=== PATIENT | male | born 1975 | race Caucasian/White ===

== ENCOUNTER 2016-07-08 19:59 | Emergency (ER) | payer MEDICAID ==
[2016-07-08 21:58] LABS: APPEARANCE CLEAR (CLEAR); BILIRUBIN NEGATIVE (NEGATIVE); COLOR YELLOW (YELLOW); GLUCOSE NEGATIVE (NEGATIVE); KETONE SMALL mg/dL (NEGATIVE); LEUKOCYTE ESTERASE TRACE (NEGATIVE); NITRITE NEGATIVE (NEGATIVE); PROTEIN TRACE mg/dL (NEGATIVE); UROBILINOGEN NORMAL (NORMAL)
[2016-07-08 21:59] LABS: BACTERIA FEW /hpf (NONE SEEN); EPITHELIAL CELLS 0-5 /hpf (0-5); MUCUS >1+ /lpf (NONE SEEN); RED CELLS - URINE 0-5 /hpf (0-5)
[2016-07-08 22:39] LABS: BASOPHILS 0.6 % (0.0-2.0); EOSINOPHILS 6.5 % (0-7); HEMATOCRIT 49.3 % (42.0-54.0); HEMOGLOBIN 17.2 g/dL (13.5-17.5); IMMATURE GRANULOCYTES 0.2 % (0-5); LYMPHOCYTES 25.4 % (15-50); MCH 33.1 pg (26.0-34.0); MCHC 34.9 g/dL (31.0-37.0); MEAN PLATELET VOLUME 11.6 fL (7.4-10.4); MONOCYTES 7.6 % (2-11); NEUTROPHILS 59.7 % (40-80); PLATELET COUNT 217 10x3/uL (130-400); RBC 5.19 10x6/uL (4.20-6.10); RDW 12.2 % (11.5-14.5); WBC 10.8 10x3/uL (4.8-10.8)
[2016-07-08 22:56] LABS: ALBUMIN 4.5 g/dL (3.4-5.0); ANION GAP 15.7 mmol/L (8-16); BILIRUBIN - TOTAL 0.72 mg/dL (0.2-1.3); CALCIUM 9.6 mg/dL (8.5-10.1); CARBON DIOXIDE 28.2 mmol/L (21.0-32.0); CREATININE - SERUM 1.2 mg/dL (0.6-1.3); POTASSIUM - SERUM 3.9 mmol/L (3.5-5.1); PROTEIN - SERUM 8.5 g/dL (6.4-8.2)
== END 2016-07-09 01:15 | disposition home or self-care (01) ==
LOC: D.ER 19:59
PROVIDERS: Emergency Medicine
DX: K85.90 Acute pancreatitis without necrosis or infection, unspecified (principal); N39.0 Urinary tract infection, site not specified; K22.70 Barrett's esophagus without dysplasia; F17.200 Nicotine dependence, unspecified, uncomplicated

== ENCOUNTER → 2017-01-14 14:19 | Outpatient (CLI) | payer MEDICAID | END | disposition home or self-care (01) | LOC: D.CT 14:19 | DX: R10.9 Unspecified abdominal pain (principal); R11.0 Nausea ==

== ENCOUNTER → 2017-01-27 13:18 | Outpatient (CLI) | payer MEDICAID ==
[2017-01-27 13:57] LABS: BASOPHILS 0.8 % (0-2); EOSINOPHILS 6.2 % (0-7); HEMATOCRIT 47.1 % (42.0-54.0); HEMOGLOBIN 16.2 g/dL (13.5-17.5); IMMATURE GRANULOCYTES 0.4 % (0-5); LYMPHOCYTES 20.6 % (15-50); MCH 32.8 pg (26.0-34.0); MCHC 34.4 g/dL (31.0-37.0); MCV 95.3 fL (80.0-100.0); MEAN PLATELET VOLUME 11.1 fL (7.4-10.4); MONOCYTES 8.5 % (2-11); NEUTROPHILS 63.5 % (40-80); PLATELET COUNT 183 10x3/uL (130-400); RBC 4.94 10x6/uL (4.20-6.10); RDW 12.8 % (11.5-14.5); WBC 7.9 10x3/uL (4.8-10.8)
[2017-01-27 14:10] LABS: ALBUMIN 3.8 g/dL (3.4-5.0); ALKALINE PHOSPHATASE 128 U/L (46-116); ALT (SGPT) 86 U/L (10-68); AMYLASE - SERUM 75 U/L (25-115); BILIRUBIN - TOTAL 0.63 mg/dL (0.2-1.3); CALC OSMOLALITY 275 mosm/kg (275-300); CALCIUM 9.3 mg/dL (8.5-10.1); CARBON DIOXIDE 28.7 mmol/L (21.0-32.0); CHLORIDE - SERUM 103 mmol/L (98-107); GLUCOSE 90 mg/dL (74-106); LIPASE 178 U/L (73-393); POTASSIUM - SERUM 4.5 mmol/L (3.5-5.1); PROTEIN - SERUM 7.8 g/dL (6.4-8.2); SODIUM 139 mmol/L (136-145); UREA NITROGEN 8 mg/dL (7-18); eGFR NON AFRICAN AMERICAN 87 mL/min (90-120)
== END | disposition home or self-care (01) ==
LOC: D.LAB 13:18
PROVIDERS: Internal Medicine Gastroenterology
DX: R10.9 Unspecified abdominal pain (principal); R11.2 Nausea with vomiting, unspecified; K21.9 Gastro-esophageal reflux disease without esophagitis

== ENCOUNTER → 2017-03-11 14:50 | Outpatient (CLI) | payer MEDICAID ==
[2017-03-16 11:13] LABS: HEPATITIS C ANTIBODY <0.1 (0.0-0.9)
== END | disposition home or self-care (01) ==
LOC: D.LABREF 14:50
PROVIDERS: Internal Medicine Gastroenterology
DX: Z83.71 Family history of colonic polyps (principal)

== ENCOUNTER → 2017-04-06 08:14 | Outpatient (CLI) | payer MEDICAID ==
[2017-04-06 09:07] LABS: INR 0.95 (0.85-1.17); PROTIME 12.3 SECONDS (11.6-15.0)
[2017-04-06 09:12] LABS: % SATURATION 34 % (15-55); IRON 108 ug/dl (35-150); TOTAL IRON BIND CAPACITY 312 ug/dl (260-445); UNSAT IRON BIND CAPACITY 204 ug/dl (150-375)
[2017-04-06 09:21] LABS: ALBUMIN 3.9 g/dL (3.4-5.0); BILIRUBIN - DIRECT 0.12 mg/dL (0.00-0.30); BILIRUBIN - INDIRECT 0.52 mg/dL (0.00-1.00); BILIRUBIN - TOTAL 0.64 mg/dL (0.2-1.3); PROTEIN - SERUM 7.5 g/dL (6.4-8.2); THYROID STIMULATING HORMONE 1.96 uIU/mL (0.36-3.74)
[2017-04-06 09:58] LABS: ERYTHROCYTE SEDIMENTATION RATE 12 mm/hr (0-15)
[2017-04-07 09:14] LABS: ALPHA FETOPROTEIN -(TUMOR MRK) 3.7 ng/mL (0.0-8.3)
[2017-04-07 10:16] LABS: ANA REFLEX - DIRECT Negative (Negative)
[2017-04-08 16:15] LABS: SMOOTH MUSCLE ABS (ACTIN) 6 Units (0-19)
== END | disposition home or self-care (01) ==
LOC: D.LAB 08:14 → D.US 09:00 → D.NM 09:30
PROVIDERS: Internal Medicine Gastroenterology
DX: R10.11 Right upper quadrant pain (principal); R11.0 Nausea; K21.9 Gastro-esophageal reflux disease without esophagitis

== ENCOUNTER 2017-05-18 08:40 | Day surgery (SDC) | payer MEDICAID ==
[~2017-05-18 08:40] MED LIST: ATARAX 25 MG TA25 MG PO; CARBINOXAMINE PO; EFFEXOR XR150 MG PO; OMEPRAZOLE20 M1 PO
[2017-05-18 09:48] VITALS: BP 120/70; BMI 31.7
[2017-05-18] MEDS ORDERED: PERCOCET 5-3251 TAB PO (12:43)
[2017-06-28] MEDS ORDERED: LATUDA40 MG PO (11:00)
== END 2017-05-18 14:55 | disposition home or self-care (01) ==
LOC: D.OPS 08:40 → D.PAN 10:30 → D.OPS 11:00
DX: K82.8 Other specified diseases of gallbladder (principal); K82.4 Cholesterolosis of gallbladder; K76.0 Fatty (change of) liver, not elsewhere classified; K21.9 Gastro-esophageal reflux disease without esophagitis; F17.200 Nicotine dependence, unspecified, uncomplicated; Z01.812 Encounter for preprocedural laboratory examination

== ENCOUNTER 2017-06-07 08:50 | Outpatient (CLI) | payer MEDICAID ==
[~2017-06-07 08:50] MED LIST changes: +PERCOCET 5-3251 TAB PO
[2017-06-28] MEDS ORDERED: LATUDA40 MG PO (11:00)
== END 2017-06-07 10:55 ==
LOC: D.OPS 08:50
DX: K21.0 Gastro-esophageal reflux disease with esophagitis (principal)

== ENCOUNTER 2017-06-29 08:35 | Inpatient (IN) | payer MEDICAID ==
[~2017-06-29] VITALS: Ht 180.3 cm; Wt 100.0 kg
[~2017-06-29 08:35] MED LIST changes: +LATUDA40 MG PO
[2017-06-29 08:56] VITALS: BP 122/85; BMI 31.8
[2017-06-29 16:12] VITALS: BP 138/86; Ht 180.3 cm; Wt 100.0 kg
[2017-06-29 20:51] VITALS: BP 142/97
[2017-06-29 23:58] VITALS: BP 129/86
[2017-06-30 04:30] VITALS: BP 117/79
[2017-06-30 05:34] LABS: BASOPHILS 0.1 % (0-2); EOSINOPHILS 0.1 % (0-7); HEMATOCRIT 41.6 % (42.0-54.0); HEMOGLOBIN 14.2 g/dL (13.5-17.5); IMMATURE GRANULOCYTES 0.4 % (0-5); LYMPHOCYTES 9.5 % (15-50); MCHC 34.1 g/dL (31.0-37.0); MCV 93.7 fL (80.0-100.0); MEAN PLATELET VOLUME 11.2 fL (7.4-10.4); MONOCYTES 5.9 % (2-11); PLATELET COUNT 198 10x3/uL (130-400); RBC 4.44 10x6/uL (4.20-6.10); RDW 12.7 % (11.5-14.5); WBC 13.8 10x3/uL (4.8-10.8)
[2017-06-30 06:17] LABS: ALBUMIN 3.4 g/dL (3.4-5.0); ANION GAP 13.4 mmol/L (8-16); BILIRUBIN - TOTAL 0.68 mg/dL (0.2-1.3); CALCIUM 8.4 mg/dL (8.5-10.1); CREATININE - SERUM 1.3 mg/dL (0.6-1.3); POTASSIUM - SERUM 4.4 mmol/L (3.5-5.1); PROTEIN - SERUM 6.8 g/dL (6.4-8.2)
[2017-06-30 08:18] VITALS: BP 128/81
[2017-06-30] MEDS ORDERED: DILAUDID2 MG PO (08:21)
[2017-06-30] MEDS ORDERED: VALIUM5 MG PO (08:21)
[2017-06-30] MEDS ORDERED: ZOFRAN ODT4 MG/UDTAB PO (08:21)
== END 2017-06-30 10:50 | disposition home or self-care (01) | DRG 328 ==
LOC: D.OPS 08:35 → D.MS 08:35 → D.PAN 10:00 → D.OPS 10:00 → D.PAN 10:30 → D.OPS 10:30 → D.PAN 11:45 → D.MS 15:45 → D.OPS 15:46 → D.MS 06-30 10:50
PROVIDERS: Surgery
PROC: 0DV44ZZ Restriction of Esophagogastric Junction, Percutaneous Endoscopic Approach (ICD-10-PCS; principal; 2017-06-29 10:30)
PROC: 0BQT4ZZ Repair Diaphragm, Percutaneous Endoscopic Approach (ICD-10-PCS; 2017-06-29 10:30)
DX: K21.0 Gastro-esophageal reflux disease with esophagitis (principal); K22.70 Barrett's esophagus without dysplasia; K44.9 Diaphragmatic hernia without obstruction or gangrene

== ENCOUNTER → 2017-09-01 10:57 | Outpatient (CLI) | payer MEDICAID ==
[2017-06-29 16:12] VITALS: BMI 30.7
[~2017-09-01 10:57] MED LIST changes: +DILAUDID2 MG PO; +VALIUM5 MG PO; +ZOFRAN ODT4 MG/UDTAB PO
== END | disposition home or self-care (01) ==
LOC: D.CT 08-31 15:00
DX: R42 Dizziness and giddiness (principal)

== ENCOUNTER → 2017-09-12 08:50 | Outpatient (CLI) | payer MEDICAID ==
[2017-06-29 16:12] VITALS: BMI 30.7
[2017-09-12 10:03] LABS: ALBUMIN 3.7 g/dL (3.4-5.0); BILIRUBIN - DIRECT 0.09 mg/dL (0.00-0.30); BILIRUBIN - INDIRECT 0.31 mg/dL (0.00-1.00); BILIRUBIN - TOTAL 0.4 mg/dL (0.2-1.3); PROTEIN - SERUM 7.2 g/dL (6.4-8.2)
== END | disposition home or self-care (01) ==
LOC: D.RAD 08:50
PROVIDERS: Internal Medicine Gastroenterology
DX: R13.10 Dysphagia, unspecified (principal)

== ENCOUNTER 2018-04-16 18:07 | Inpatient (IN) | payer MEDICAID ==
[2018-04-16] VITALS (10 sets, daily range): BP systolic 96–118; BP diastolic 62–87
[~2018-04-16] VITALS: Ht 180.3 cm; Wt 95.5 kg
[2018-04-16 19:01] LABS: BASOPHILS 0.4 % (0-2); EOSINOPHILS 3.2 % (0-7); HEMATOCRIT 44.8 % (42.0-54.0); HEMOGLOBIN 15.6 g/dL (13.5-17.5); IMMATURE GRANULOCYTES 0.1 % (0-5); LYMPHOCYTES 22.8 % (15-50); MCH 32.4 pg (26.0-34.0); MCHC 34.8 g/dL (31.0-37.0); MCV 92.9 fL (80.0-100.0); MEAN PLATELET VOLUME 12.3 fL (7.4-10.4); MONOCYTES 5.8 % (2-11); NEUTROPHILS 67.7 % (40-80); PLATELET COUNT 179 10x3/uL (130-400); RBC 4.82 10x6/uL (4.20-6.10); WBC 7.1 10x3/uL (4.8-10.8)
[2018-04-16 19:18] LABS: ALBUMIN 3.9 g/dL (3.4-5.0); ALKALINE PHOSPHATASE 95 U/L (46-116); ALT (SGPT) 37 U/L (10-68); BILIRUBIN - TOTAL 0.46 mg/dL (0.2-1.3); CALC OSMOLALITY 278 mosm/kg (275-300); CARBON DIOXIDE 28.4 mmol/L (21.0-32.0); CHLORIDE - SERUM 103 mmol/L (98-107); CREATININE - SERUM 1.3 mg/dL (0.6-1.3); GLUCOSE 109 mg/dL (74-106); POTASSIUM - SERUM 3.7 mmol/L (3.5-5.1); PROTEIN - SERUM 7.5 g/dL (6.4-8.2); SODIUM 140 mmol/L (136-145); UREA NITROGEN 11 mg/dL (7-18); eGFR NON AFRICAN AMERICAN 64 mL/min (90-120)
[2018-04-16 19:28] LABS: CREATINE KINASE 86 UL (21-232); MAGNESIUM - SERUM 1.8 mg/dL (1.8-2.4); PRO BNP 21 pg/mL (0-125)
[2018-04-16 19:32] LABS: TROPONIN-I < 0.017 ng/mL (0.000-0.060)
[2018-04-16 19:45] LABS: UDS - AMPHET NEGATIVE QUAL (NEGATIVE); UDS - BARB NEGATIVE QUAL (NEGATIVE); UDS - BENZO NEGATIVE QUAL (NEGATIVE); UDS - COCAINE NEGATIVE QUAL (NEGATIVE); UDS - OPIATE NEGATIVE QUAL (NEGATIVE); UDS - PCP NEGATIVE QUAL (NEGATIVE); UDS - THC POSITIVE QUAL (NEGATIVE)
[2018-04-16 20:08] LABS: APPEARANCE CLEAR (CLEAR); COLOR YELLOW (YELLOW)
[2018-04-16 20:09] LABS: BILIRUBIN NEGATIVE (NEGATIVE); GLUCOSE NEGATIVE (NEGATIVE); KETONE NEGATIVE (NEGATIVE); NITRITE NEGATIVE (NEGATIVE); PROTEIN 1+ mg/dL (NEGATIVE); RED CELLS - URINE 0-5 /hpf (0-5); UROBILINOGEN NORMAL (NORMAL); WHITE CELLS - URINE 0-5 /hpf (0-5)
[2018-04-16 20:10] LABS: BACTERIA FEW /hpf (NONE SEEN); HYALINE CAST 0-5 /lpf (NONE SEEN); MUCUS <1+ /lpf (NONE SEEN)
--- NOTE | 2018-04-16 22:10 | NUR ---
SPOKE WITH TELEMETRY. NO BOX'S AVAILABLE. PUT ON WAITLIST.
--- NOTE | 2018-04-16 23:03 | NUR ---
ARRIVED ON FLOOR VIA WC. SELF AMBULATED TO BED. ORIENTED TO ROOM AND CALL LIGHT. IV INFUSING TO LEFT AC. ASSESSMENT AND HISTORY PER FLOW SHEET.
[2018-04-17] MEDS ORDERED: PEPCID AC20 MG PO (00:22)
[2018-04-17] MEDS ORDERED: RANITIDINE HCL150 M1 PO (00:24)
[2018-04-17] MEDS ORDERED: OMEPRAZOLE20 M1 PO (00:25)
[2018-04-17] MEDS ORDERED: NEURONTIN600 MG PO (00:26)
[2018-04-17 00:49] VITALS: BP 107/63; Ht 180.3 cm; Wt 95.5 kg
[2018-04-17 04:00] VITALS: BP 97/63
--- NOTE | 2018-04-17 07:30 | NUR ---
AWAKE AND ALERT. ORIENTED X3. NO C/O AT THIS TIME. REPORTS SOME DIZZINESS WHEN UP. WILL MONITOR. LUNGS ARE CLEAR BILATERALLY, NO COUGH NOTED. SKIN IS INTACT WITHOUT REDNESS. IV TO LEFT AC IS PATENT WITHOUT REDNESS AT INSERTION SITE. DENIES NEEDS.
[2018-04-17 08:53] VITALS: BP 101/71
--- NOTE | 2018-04-17 10:00 | NUR ---
RESTING QUIETLY IN BED. DENIES NEEDS. FAMILY AT BEDSIDE.
--- NOTE | 2018-04-17 12:45 | NUR ---
LUNCH SERVED IN ROOM.
--- NOTE | 2018-04-17 13:20 | NUR ---
REFUSED SCD'S AT THIS TIME. IS UP AD SYLVAIN.
--- NOTE | 2018-04-17 19:45 | NUR ---
PT RESTING IN BED. ALERT AND ORIENTED. NO SIGNS OF DISTRESS. BREATHING EVEN AND UNLABORED. PT STATES NO PROBLEMS AT THIS TIME. IV SITE LT AC DRESSING CLEAN DRY AND INTACT. NO SIGNS OF INFECTION. SKIN CLEAN DRY AND INTACT. BOWEL SOUNDS ACTIVE. NO LOWER LEG SWELLING PRESENT. WILL CONTINUE PLAN OF CARE. CALL LIGHT IN REACH.
[2018-04-17 20:00] VITALS: BP 104/71
--- NOTE | 2018-04-17 20:08 | NUR ---
ATE ABOUT HALF OF SUPPER. REFUSED OFFER OF ALTERNATIVE FOODS. DENIES NEEDS. NO CHANGES NOTED.
[2018-04-18 04:00] VITALS: BP 101/57
[2018-04-18 04:49] LABS: BASOPHILS 0.6 % (0-2); EOSINOPHILS 5.3 % (0-7); HEMATOCRIT 38.8 % (42.0-54.0); HEMOGLOBIN 13.2 g/dL (13.5-17.5); IMMATURE GRANULOCYTES 0.2 % (0-5); LYMPHOCYTES 30.6 % (15-50); MCH 31.9 pg (26.0-34.0); MCV 93.7 fL (80.0-100.0); MEAN PLATELET VOLUME 12.3 fL (7.4-10.4); MONOCYTES 6.8 % (2-11); NEUTROPHILS 56.5 % (40-80); PLATELET COUNT 153 10x3/uL (130-400); RBC 4.14 10x6/uL (4.20-6.10); RDW 12.2 % (11.5-14.5); WBC 6.2 10x3/uL (4.8-10.8)
[2018-04-18 05:18] LABS: CALC OSMOLALITY 278 mosm/kg (275-300); CALCIUM 8.5 mg/dL (8.5-10.1); CARBON DIOXIDE 23.5 mmol/L (21.0-32.0); CHLORIDE - SERUM 107 mmol/L (98-107); GLUCOSE 81 mg/dL (74-106); POTASSIUM - SERUM 3.9 mmol/L (3.5-5.1); SODIUM 141 mmol/L (136-145); THYROID STIMULATING HORMONE 1.83 uIU/mL (0.36-3.74); UREA NITROGEN 9 mg/dL (7-18)
[2018-04-18 05:23] LABS: CREATININE - SERUM 0.9 mg/dL (0.6-1.3); eGFR NON AFRICAN AMERICAN > 90 mL/min (90-120)
--- NOTE | 2018-04-18 08:30 | NUR ---
PATIENT SLEEPING ON LEFT SIDE. NO NEEDS AT THIS TIME
[2018-04-18 08:37] VITALS: BP 115/67
[2018-04-18 09:45] VITALS: BP 124/78
[2018-04-18 09:50] VITALS: BP 130/77
[2018-04-18 09:55] VITALS: BP 132/86
--- NOTE | 2018-04-18 11:55 | NUR ---
Patient voiced concerns about DC shared those concerns with Aidan Hurst APN and Stacie Bocanegra called Chanell Amos APN, no new orders received.
[2018-04-18 11:58] VITALS: BP 119/78
--- NOTE | 2018-04-18 12:01 | MORECARE ---
CASE MANAGEMENT DISCHARGE SUMMARY PATIENT: NORMA CALDWELL JR UNIT: [id number] ADM DATE: 04/17/18 AGE: 43 : 75 SEX: M ROOM/BED: D.2213 AUTHOR: FARHAD OBREGON PHYSICIAN: REFERRING PHYSICIAN: FRANCISCO OLIVEIRA MD DATE OF SERVICE: 04/18/18 Discharge Plan Patient Name: NORMA CALDWELL [facility] [facility] 1975 Planned Disposition: Home Anticipated Discharge Date: Discharge Date: Expected LOS: Initial Reviewer: [email or web address] Initial Review Date: 04/16/2018 Generated: 04/18/18 1:01 pm Patient Name: NORMA CALDWELL Page [id number] at 1201 All edits/amendments must be made on the electronic document DICTATION DATE: 04/18/18 1200 BALLOON PILOT: LIO 04/18/18 1200 RPT#: [id number] DC DATE: STATUS: ADM IN [facility] [address] [place] [address] END OF REPORT
--- NOTE | 2018-04-18 12:08 | MORECARE ---
CASE MANAGEMENT DISCHARGE SUMMARY PATIENT: NORMA CALDWELL JR UNIT: [id number] ADM DATE: 04/17/18 AGE: 43 : 75 SEX: M ROOM/BED: D.2213 AUTHOR: FARHAD OBREGON PHYSICIAN: REFERRING PHYSICIAN: FRANCISCO OLIVEIRA MD DATE OF SERVICE: 04/18/18 Discharge Plan Patient Name: NORMA CALDWELL [facility] [facility] 1975 Planned Disposition: Home Anticipated Discharge Date: Discharge Date: Expected LOS: Initial Reviewer: [email or web address] Initial Review Date: 04/16/2018 Generated: 04/18/18 1:08 pm DCPIA - Discharge Planning Initial Assessment Updated by [email or web address]: Lisa Olvera on 04/18/18 12:01 pm * Is the patient Alert and Oriented? Yes * How many steps to enter\exit or inside your home? * PCP BARBARA GUERRA * Pharmacy [facility] [address] * Preadmission Environment Home with Family * ADLs Independent * Equipment None * List name and contact numbers for known caregivers / representatives who currently or will assist patient after discharge: ADRI OLIVEIRA (MOTHER) [phone] * Verbal permission to speak to the caregivers and representatives has been obtained from the patient. N/A * Community resources currently utilized None * Additional services required to return to the preadmission environment? No * Can the patient safely return to the preadmission environment? Yes * Has this patient been hospitalized within the prior 30 days at any hospital? No Last DP export: 04/18/18 11:01 a Patient Name: NORMA CALDWELL Page [id number] at 1208 All edits/amendments must be made on the electronic document DICTATION DATE: 04/18/181206 HEADING SAW OPERATOR: LIO 04/18/181206 RPT#: [id number] DC DATE: STATUS: ADM IN [facility] [address] [place] [address] END OF REPORT
--- NOTE | 2018-04-18 12:15 | MORECARE ---
CASE MANAGEMENT DISCHARGE SUMMARY PATIENT: NORMA CALDWELL UNIT: [id number] ADM DATE: 04/17/18 AGE: 43 : 75 SEX: M ROOM/BED: D.2213 AUTHOR: MINDIDOC PHYSICIAN: REFERRING PHYSICIAN: FRANCISCO OLIVEIRA MD DATE OF SERVICE: 04/18/18 Discharge Plan Patient Name: NORMA CALDWELL Facility: [facility]:[place] : 1975 Planned Disposition: Home Anticipated Discharge Date: Discharge Date: Expected LOS: Initial Reviewer: [email or web address] Initial Review Date: 04/16/2018 Generated: 04/18/18 1:14 pm Comments DCP- Discharge Planning Updated by [email or web address]: Lisa Olvera on 04/18/18 11:[address] Patient Name: NORMA CALDWELL Admission Status: ER Accout number: [id number] Admission Date: 04-17-2018 : 1975 Admission Diagnosis: Attending: FRANCISCO OLIVEIRA Current LOS: 1 Anticipated DC Date: Planned Disposition: Home Primary Insurance: MEDICAID [place] Discharge Planning Comments: CM met with patient to assess discharge planning needs. Patient lives independently at home by his mom in [place]. He stated that he does not use/need any DME or HH. His home is safe. 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 He has discharge orders to be dc today. CM will continue to follow and assist with DC planning as needed Accounts Receivable Processor: Lisa Olvera DCPIA - Discharge Planning Initial Assessment Updated by [email or web address]: Lisa Olvera on 04/18/18 12:01 pm * Is the patient Alert and Oriented? Yes * How many steps to enter\exit or inside your home? * PCP BARBARA GUERRA * Pharmacy [facility] [address] * Preadmission Environment Home with Family * ADLs Independent * Equipment None * List name and contact numbers for known caregivers / representatives who currently or will assist patient after discharge: ADRI OLIVEIRA (MOTHER) [phone] * Verbal permission to speak to the caregivers and representatives has been obtained from the patient. N/A * Community resources currently utilized None * Additional services required to return to the preadmission environment? No * Can the patient safely return to the preadmission environment? Yes * Has this patient been hospitalized within the prior 30 days at any hospital? No Last DP export: 04/18/18 11:08 a Patient Name: NORMA CALDWELL Page [phone] at 1215 All edits/amendments must be made on the electronic document DICTATION DATE: 04/18/181213 SHELLFISH MEAT SEPARATOR OPERATOR: LIO 04/18/181213 RPT#: [id number] DC DATE: STATUS: ADM IN [facility] [address] [place] [address] END OF REPORT
--- NOTE | 2018-04-18 12:46 | NUR ---
WALKED 3 LAPS AROUND UNIT. CONCERNED ABOUT HAVING ANOTHER EPISODE. DISCHARGE INSTRUCTIONS GIVEN AND UNDERSTOOD. WAITING ON MOM TO COME PICK HIM UP.
[2018-04-19 09:19] LABS: FOLATE (FOLIC ACID) - SERUM 14.1 ng/mL (>3.0)
--- NOTE | 2018-04-24 10:22 | MORECARE ---
CASE MANAGEMENT DISCHARGE SUMMARY PATIENT: NORMA CALDWELL UNIT: [id number] ADM DATE: 04/17/18 AGE: 43 : 75 SEX: M ROOM/BED: D.2213 AUTHOR: MINDIDOC PHYSICIAN: REFERRING PHYSICIAN: FRANCISCO OLIVEIRA MD DATE OF SERVICE: 04/24/18 Discharge Plan Patient Name: NORMA CALDWELL Facility: [facility]:[place] : 1975 Planned Disposition: Home Anticipated Discharge Date: Discharge Date: 04/18/2018 Expected LOS: 0 Initial Reviewer: [email or web address] Initial Review Date: 04/16/2018 Generated: 04/24/18 11:22 am Comments DCP- Discharge Planning Updated by [email or web address]: Lisa Olvera on 04/18/18 11:[address] Patient Name: NORMA CALDWELL Admission Status: ER Accout number: [id number] Admission Date: 04-17-2018 : 1975 Admission Diagnosis: Attending: FRANCISCO OLIVEIRA Current LOS: 1 Anticipated DC Date: Planned Disposition: Home Primary Insurance: MEDICAID [place] Discharge Planning Comments: CM met with patient to assess discharge planning needs. Patient lives independently at home by his mom in [place]. He stated that he does not use/need any DME or HH. His home is safe. 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 He has discharge orders to be dc today. CM will continue to follow and assist with DC planning as needed Damage Prevention Coordinator: Lisa Olvera DCPIA - Discharge Planning Initial Assessment Updated by [email or web address]: Lisa Olvera on 04/18/18 12:01 pm * Is the patient Alert and Oriented? Yes * How many steps to enter\exit or inside your home? * PCP BARBARA GUERRA * Pharmacy [facility] [address] * Preadmission Environment Home with Family * ADLs Independent * Equipment None * List name and contact numbers for known caregivers / representatives who currently or will assist patient after discharge: ADRI OLIVEIRA (MOTHER) [phone] * Verbal permission to speak to the caregivers and representatives has been obtained from the patient. N/A * Community resources currently utilized None * Additional services required to return to the preadmission environment? No * Can the patient safely return to the preadmission environment? Yes * Has this patient been hospitalized within the prior 30 days at any hospital? No Last DP export: 04/18/18 11:14 a Patient Name: NORMA CALDWELL Page [id number] at 1022 All edits/amendments must be made on the electronic document DICTATION DATE: 04/24/18 1021 MANAGER FAMILY: LIO 04/24/18 1021 RPT#: [id number] DC DATE:04/18/18 STATUS: DIS IN [facility] [address] [place] [address] END OF REPORT
== END 2018-04-18 13:59 | disposition home or self-care (01) | DRG 312 ==
LOC: D.ER 18:07 → D.MS 21:22 → OBSVTIME 21:22 → D.MS 04-17 14:31
PROVIDERS: Family Medicine; ADMIT Internal Medicine Nephrology
DX: R55 Syncope and collapse (principal); R00.1 Bradycardia, unspecified; R42 Dizziness and giddiness; M79.7 Fibromyalgia; F17.200 Nicotine dependence, unspecified, uncomplicated

== ENCOUNTER → 2018-10-06 08:34 | Outpatient (CLI) | payer MEDICAID ==
[2018-04-17 00:49] VITALS: BMI 29.3
[~2018-10-06 08:34] MED LIST changes: +NEURONTIN600 MG PO; +PEPCID AC20 MG PO; +RANITIDINE HCL150 M1 PO
[2018-10-06 09:56] LABS: ALBUMIN 3.8 g/dL (3.4-5.0); BILIRUBIN - DIRECT 0.07 mg/dL (0.00-0.30); BILIRUBIN - INDIRECT 0.3 mg/dL (0.00-1.00); BILIRUBIN - TOTAL 0.37 mg/dL (0.2-1.3); PROTEIN - SERUM 7.3 g/dL (6.4-8.2)
== END | disposition home or self-care (01) ==
LOC: D.LAB 08:34 → D.US 09:30
PROVIDERS: ATTEND Internal Medicine Gastroenterology
DX: K76.0 Fatty (change of) liver, not elsewhere classified (principal); R93.89 Abnormal findings on diagnostic imaging of other specified body structures

== ENCOUNTER 2019-01-04 15:48 | Emergency (ER) | payer MEDICAID ==
[~2019-01-04] VITALS: Ht 182.9 cm; Wt 83.2 kg
[2019-01-04 16:18] VITALS: Ht 182.9 cm; Wt 83.2 kg
[2019-01-04 16:38] LABS: BASOPHILS 0.9 % (0-2); HEMOGLOBIN 15.7 g/dL (13.5-17.5); IMMATURE GRANULOCYTES 0.3 % (0-5); LYMPHOCYTES 28.8 % (15-50); MCH 32.4 pg (26.0-34.0); MCHC 34.1 g/dL (31.0-37.0); MEAN PLATELET VOLUME 11.5 fL (7.4-10.4); RBC 4.84 10x6/uL (4.20-6.10); RDW 12.8 % (11.5-14.5); WBC 6.8 10x3/uL (4.8-10.8)
[2019-01-04 16:45] LABS: PLATELET COUNT 203 10x3/uL (130-400)
[2019-01-04 16:50] LABS: APPEARANCE CLEAR (CLEAR); BILIRUBIN NEGATIVE (NEGATIVE); COLOR STRAW (YELLOW); GLUCOSE NEGATIVE (NEGATIVE); KETONE NEGATIVE (NEGATIVE); NITRITE NEGATIVE (NEGATIVE); PROTEIN NEGATIVE (NEGATIVE); UROBILINOGEN NORMAL (NORMAL)
[2019-01-04 17:17] LABS: ALKALINE PHOSPHATASE 164 U/L (46-116); ALT (SGPT) 47 U/L (10-68); AMYLASE - SERUM 86 U/L (25-115); BILIRUBIN - TOTAL 0.48 mg/dL (0.2-1.3); CALCIUM 8.9 mg/dL (8.5-10.1); CARBON DIOXIDE 30.6 mmol/L (21.0-32.0); CHLORIDE - SERUM 103 mmol/L (98-107); LIPASE 210 U/L (73-393); POTASSIUM - SERUM 3.5 mmol/L (3.5-5.1); SODIUM 143 mmol/L (136-145); UREA NITROGEN 10 mg/dL (7-18); eGFR NON AFRICAN AMERICAN 87 mL/min (90-120)
[2019-01-04 17:22] LABS: CALC OSMOLALITY 281 mosm/kg (275-300); GLUCOSE 65 mg/dL (74-106); TROPONIN-I < 0.017 ng/mL (0.000-0.060)
[2019-01-04 18:17] LABS: APTT 30.5 SECONDS (22.8-39.4); INR 0.98 (0.85-1.17); PROTIME 12.5 SECONDS (11.6-15.0)
[2019-01-04 18:27] LABS: CKMB 0.3 U/L (0.0-3.6); CREATINE KINASE 75 UL (21-232)
[2019-01-04 18:32] LABS: TROPONIN-I < 0.017 ng/mL (0.000-0.060)
[2019-01-04 19:36] VITALS: BP 123/69
== END 2019-01-04 19:36 | disposition home or self-care (01) ==
LOC: D.ER 15:48
PROVIDERS: Family Medicine
DX: R10.30 Lower abdominal pain, unspecified (principal); R53.83 Other fatigue

== ENCOUNTER 2019-03-12 20:13 | Emergency (ER) | payer MEDICAID ==
[~2019-03-12] VITALS: Ht 182.9 cm; Wt 81.8 kg
[2019-03-12 20:28] VITALS: Ht 182.9 cm; Wt 81.8 kg
[2019-03-12] MEDS ORDERED: FLUVOXAMINE MA100 M1 PO (20:34)
[2019-03-12] MEDS ORDERED: BENTYL10 MG PO (20:35)
[2019-03-12] MEDS ORDERED: FLOMAX0.4 MG PO (20:37)
[2019-03-12] MEDS ORDERED: PHENERGAN25 M1 PO (20:37)
[2019-03-12] MEDS ORDERED: ZOFRAN4 MG PO (20:38)
[2019-03-12 21:10] LABS: BASOPHILS 0.6 % (0-2); EOSINOPHILS 6.5 % (0-7); HEMATOCRIT 41.6 % (42.0-54.0); HEMOGLOBIN 14.3 g/dL (13.5-17.5); IMMATURE GRANULOCYTES 0.2 % (0-5); LYMPHOCYTES 29.6 % (15-50); MCH 31.6 pg (26.0-34.0); MCHC 34.4 g/dL (31.0-37.0); MCV 91.8 fL (80.0-100.0); MEAN PLATELET VOLUME 10.8 fL (7.4-10.4); MONOCYTES 9.4 % (2-11); NEUTROPHILS 53.7 % (40-80); PLATELET COUNT 185 10x3/uL (130-400); RBC 4.53 10x6/uL (4.20-6.10); WBC 6.5 10x3/uL (4.8-10.8)
[2019-03-12 21:22] LABS: CALC OSMOLALITY 281 mosm/kg (275-300); CALCIUM 8.8 mg/dL (8.5-10.1); CARBON DIOXIDE 31.9 mmol/L (21.0-32.0); CHLORIDE - SERUM 106 mmol/L (98-107); CREATININE - SERUM 1.1 mg/dL (0.6-1.3); GLUCOSE 76 mg/dL (74-106); POTASSIUM - SERUM 3.7 mmol/L (3.5-5.1); SODIUM 143 mmol/L (136-145); UREA NITROGEN 8 mg/dL (7-18); eGFR NON AFRICAN AMERICAN 77 mL/min (90-120)
[2019-03-12 21:31] LABS: ALKALINE PHOSPHATASE 101 U/L (46-116); ALT (SGPT) 42 U/L (10-68); AMYLASE - SERUM 69 U/L (25-115); BILIRUBIN - TOTAL 0.41 mg/dL (0.2-1.3); LIPASE 248 U/L (73-393); PROTEIN - SERUM 7.3 g/dL (6.4-8.2)
[2019-03-12 21:32] LABS: TROPONIN-I < 0.017 ng/mL (0.000-0.060)
--- NOTE | 2019-03-12 21:46 | NUR ---
DR DAVIDSON NOTIFIED AND REVIEWED PT's BEHAVIOR AND ASSESSMENT RESULT. PT IS A LOW RISK PER DR DAVIDSON. DR DAVIDSON STATED TO GIVE RESOURCES TO PT AT TIME OF DISCHARGE. NO FURTHER ORDERS AT THIS TIME. REVIEWED RESOURCES WITH PT AND HE VERBALIZED UNDERSTANDING.
[2019-03-12 21:55] LABS: APPEARANCE CLEAR (CLEAR); BILIRUBIN NEGATIVE (NEGATIVE); COLOR YELLOW (YELLOW); GLUCOSE NEGATIVE (NEGATIVE); KETONE NEGATIVE (NEGATIVE); NITRITE NEGATIVE (NEGATIVE); PROTEIN NEGATIVE (NEGATIVE); UROBILINOGEN NORMAL (NORMAL)
[2019-03-12] MEDS ORDERED: CHRONULAC30 ML PO (22:02)
[2019-03-12] MEDS ORDERED: LIBRIUM5 MG PO (22:04)
[2019-03-12 22:31] VITALS: BP 117/81
== END 2019-03-12 22:31 | disposition home or self-care (01) ==
LOC: D.ER 20:13
PROVIDERS: Family Medicine
DX: K59.00 Constipation, unspecified (principal)

== ENCOUNTER → 2019-07-23 07:22 | Outpatient (CLI) | payer MEDICAID ==
[2019-03-12 20:28] VITALS: BMI 24.4
[~2019-07-23 07:22] MED LIST changes: +BENTYL10 MG PO; +CHRONULAC30 ML PO; +FLOMAX0.4 MG PO; +FLUVOXAMINE MA100 M1 PO; +LIBRIUM5 MG PO; +PHENERGAN25 M1 PO; +ZOFRAN4 MG PO
== END | disposition home or self-care (01) ==
LOC: D.NM 07:22
PROVIDERS: ATTEND Internal Medicine Gastroenterology
DX: R11.0 Nausea (principal); R10.13 Epigastric pain

== ENCOUNTER → 2019-07-26 09:54 | Outpatient (CLI) | payer MEDICAID ==
[2019-03-12 20:28] VITALS: BMI 24.4
== END | disposition home or self-care (01) ==
LOC: D.CT 07-19 08:30
PROVIDERS: ATTEND Internal Medicine Gastroenterology
DX: Z98.890 Other specified postprocedural states (principal); T14.90XA Injury, unspecified, initial encounter

== ENCOUNTER 2019-11-28 21:03 | Emergency (ER) | payer MEDICAID ==
[~2019-11-28] VITALS: Ht 182.9 cm; Wt 84.1 kg
[2019-11-28 21:57] VITALS: Ht 182.9 cm; Wt 84.1 kg
[2019-11-28] MEDS ORDERED: RISPERDAL2 MG PO (22:02)
[2019-11-28] MEDS ORDERED: DEPAKOTE ER500 MG PO (22:03)
[2019-11-28 22:41] LABS: BASOPHILS 0.8 % (0-2); EOSINOPHILS 7.5 % (0-7); HEMATOCRIT 42.7 % (42.0-54.0); HEMOGLOBIN 14.6 g/dL (13.5-17.5); IMMATURE GRANULOCYTES 0.2 % (0-5); LYMPHOCYTES 32.9 % (15-50); MCH 32.7 pg (26.0-34.0); MCHC 34.2 g/dL (31.0-37.0); MCV 95.7 fL (80.0-100.0); MONOCYTES 7.7 % (2-11); NEUTROPHILS 50.9 % (40-80); PLATELET COUNT 182 10x3/uL (130-400); RBC 4.46 10x6/uL (4.20-6.10); WBC 8.6 10x3/uL (4.8-10.8)
[2019-11-28 22:55] LABS: ANION GAP 14.1 mmol/L (8-16); CARBON DIOXIDE 28.6 mmol/L (21.0-32.0); CREATININE - SERUM 1.2 mg/dL (0.6-1.3); POTASSIUM - SERUM 3.7 mmol/L (3.5-5.1)
[2019-11-28 23:08] LABS: ALBUMIN 4.1 g/dL (3.4-5.0); BILIRUBIN - TOTAL 0.38 mg/dL (0.2-1.3); PROTEIN - SERUM 7.6 g/dL (6.4-8.2)
[2019-11-29 01:45] VITALS: BP 112/70
== END 2019-11-29 01:45 | disposition home or self-care (01) ==
LOC: D.ER 21:03
PROVIDERS: Family Medicine
DX: R13.10 Dysphagia, unspecified (principal); F17.210 Nicotine dependence, cigarettes, uncomplicated